=== PATIENT | male | born 1955 | race Two or more races ===

== ENCOUNTER 2018-10-29 09:56 | Inpatient (IN) | payer MEDICAID ==
[~2018-10-29] VITALS: Ht 177.8 cm; Wt 78.0 kg
[~2018-10-29 09:56] MED LIST: GLIP5TAB12 PO; METO-539 PO
[2018-10-29] MEDS ORDERED: SODIUM CHLORIDE 0.9% 1,000 ML IV ONE (10:17)
[2018-10-29 10:40] LABS: HEMATOCRIT. 29.8 % (42.0-52.0); HEMOGLOBIN. 9.6 g/dL (14.0-18.0); MEAN CORPUSCULAR HEMOGLOBIN 29.2 pg (28.0-32.0); MEAN CORPUSCULAR VOLUME 90.4 fL (80.0-94.0); PLATELET 107 x1000/uL (130-400); RED BLOOD CELL COUNT 3.29 mill/uL (4.7-6.1); RED CELL DISTRIBUTION WIDTH 29.1 % (11.6-14.6)
[2018-10-29 10:46] LABS: CHLORIDE 100 mEq/L (98-107)
[2018-10-29 10:49] LABS: ETHANOL BLOOD < 10 mg/dL
[2018-10-29] MEDS ORDERED: ONDANSETRON HCL 4MG/2ML INJ IV ONE (11:15)
[2018-10-29] MEDS ORDERED: MECLIZINE 25MG TABLET PO ONE (11:15)
[2018-10-29 11:28] LABS: PLATELET ESTIMATE SLIGHTLY DECREASED
[2018-10-29] MEDS ORDERED: NITROGLYCERIN 0.4MG TABLET SL SL PRN (14:00)
[2018-10-29] MEDS ORDERED: DOCUSATE SODIUM 100MG CAPSULE PO PRN (14:00)
[2018-10-29] MEDS ORDERED: CLONIDINE 0.1MG TABLET PO PRN (14:00)
[2018-10-29] MEDS ORDERED: ACETAMINOPHEN 325MG TABLET PO PRN (14:00)
[2018-10-29] MEDS ORDERED: IPRATROPIUM/ALBUTEROL 0.5-3(2.5)MG/3ML NEB INH PRN (14:00)
[2018-10-29] MEDS ORDERED: MAGNESIUM/ALUMINUM HYDROXIDE/SIMETHICONE 30ML UDC PO PRN (14:00)
[2018-10-29] MEDS ORDERED: ONDANSETRON HCL 4MG/2ML INJ IV PRN (14:00)
[2018-10-29] MEDS ORDERED: GUAIFENESIN 200MG/10ML SUGAR FREE UDC PO PRN (14:00)
[2018-10-29] MEDS ORDERED: KETOROLAC 15MG/ML VIAL IV PRN (14:00)
[2018-10-29] MEDS ORDERED: DEXTROSE 50% WATER 50ML SYRINGE IV PRN (14:15)
[2018-10-29 15:01] LABS: T4 FREE 1.06 ng/dL (0.76-1.46)
[2018-10-29 15:26] LABS: VITAMIN B12 SERUM 637 pg/mL (211-911)
[2018-10-29 15:42] LABS: CREATINE KINASE 63 IU/L (39-308)
[2018-10-29 15:43] LABS: CREATINE KINASE MB FRACTION 1.8 ng/mL (0.5-3.6)
[2018-10-29 15:44] LABS: FOLIC ACID (FOLATE) SERUM > 20.00 ng/mL (>5.38)
[2018-10-29 17:30] VITALS: BP 150/49
[2018-10-29] MEDS: INSULIN LISPRO 100 UNITS/ML SUBCUT SCH ×2 (17:30→20:47)
[2018-10-29] MEDS: BLOOD SUGAR DIAGNOSTIC STRIP TEST SCH ×2 (17:30→20:47)
[2018-10-29 17:49] VITALS: BP 150/49
[2018-10-29] MEDS ORDERED: ENOXAPARIN 40MG/0.4ML SYR SUBCUT SCH (18:00)
[2018-10-29] MEDS ORDERED: ASPI-1158 MT (18:22)
[2018-10-29 20:00] VITALS: BP 130/57
[2018-10-29] MEDS: FAMOTIDINE 20MG TABLET PO SCH (20:47)
[2018-10-29] MEDS: SODIUM CHLORIDE 0.9% 1,000 ML IV SCH (20:47)
[2018-10-29] MEDS ORDERED: ZOLPIDEM TARTRATE 5MG TABLET PO PRN (21:00)
[2018-10-29 23:50] LABS: CREATINE KINASE MB FRACTION 1.7 ng/mL (0.5-3.6)
[2018-10-30] VITALS: BP 130/56
[2018-10-30 04:00] VITALS: BP 130/52
[2018-10-30] MEDS: BLOOD SUGAR DIAGNOSTIC STRIP TEST SCH ×2 (06:10→11:49)
[2018-10-30] MEDS: INSULIN LISPRO 100 UNITS/ML SUBCUT SCH ×2 (06:22→12:40)
[2018-10-30 08:00] VITALS: BP 144/70
[2018-10-30] MEDS: SODIUM CHLORIDE 0.9% 1,000 ML IV SCH (08:55)
[2018-10-30] MEDS: FAMOTIDINE 20MG TABLET PO SCH (08:56)
[2018-10-30] MEDS ORDERED: ASPIRIN 325MG EC TABLET PO SCH (09:00)
[2018-10-30] MEDS ORDERED: MECLIZINE 25MG TABLET PO PRN (10:15)
[2018-10-30 10:58] LABS: HEMATOCRIT. 31.5 % (42.0-52.0); HEMOGLOBIN. 10.1 g/dL (14.0-18.0); MEAN PLATELET VOLUME 9.5 fl (7.4-10.4); PLATELET 91 x1000/uL (130-400); RED BLOOD CELL COUNT 3.38 mill/uL (4.7-6.1); RED CELL DISTRIBUTION WIDTH 27.9 % (11.6-14.6)
[2018-10-30 12:00] VITALS: BP 130/61
[2018-10-30 13:47] LABS: PLATELET ESTIMATE DECREASED
[2018-10-30 16:00] VITALS: BP 137/61
== END 2018-10-30 17:35 | disposition home or self-care (01) | DRG 111 ==
LOC: ER 10:34 → 5WST 13:12 → ENRESERV 13:58
PROVIDERS: ADMIT Internal Medicine; ATTEND Internal Medicine
DX: H81.10 Benign paroxysmal vertigo, unspecified ear (principal); E11.65 Type 2 diabetes mellitus with hyperglycemia; D63.8 Anemia in other chronic diseases classified elsewhere; E78.00 Pure hypercholesterolemia, unspecified; E78.5 Hyperlipidemia, unspecified; I25.10 Atherosclerotic heart disease of native coronary artery without angina pectoris; I10 Essential (primary) hypertension; R27.0 Ataxia, unspecified; Z95.1 Presence of aortocoronary bypass graft; Z79.899 Other long term (current) drug therapy
CPT/HCPCS: 36415; 70551; 71045; 80061; 80320; 82550; 82553; 82607; 82746; 82962; 83036; 83540; 83550; 84439; 84443; 84484; 93005; 93970; 96374; 99285; J1650; J1815; J2405; J7030; J8597; G0480